=== PATIENT | female | born 1995 | race Caucasian/White ===

== ENCOUNTER 2021-07-29 11:48 | Emergency (ER) | payer OTHER ==
[~2021-07-29 11:48] MED LIST: KEFLEX250 MG PO; NORCO 5-325 TA1 EACH PO; PEPCID AC20 MG PO
[2021-07-29 14:28] LABS: BASOPHIL 0.7 % (0-2); HGB 12.9 g/dl (12.5-16.0); LYMPHOCYTE 60.5 % (15-48); MCH 29.9 pg (25.0-31.0); MCHC 33.1 g/dL (32.0-36.0); MCV 90.5 fL (78.0-100.0); MONOCYTE 10.9 % (0-12); MPV 10.4 fL (6.0-9.5); NEUTROPHIL 26.9 % (41-80); NRBC 0; PLT 148 K/uL (150-400); RBC 4.31 M/uL (4.20-5.40); RDW 13.5 % (11.5-14.0); WBC 2.9 K/uL (4.0-10.5)
[2021-07-29 14:53] LABS: BUN/CREAT RATIO (CALC) 14.7 RATIO; CREATININE 0.68 mg/dL (0.51-0.95); POTASSIUM 3.9 mmol/L (3.5-5.1)
[2021-07-29] MEDS ORDERED: VENTOLIN HFA IN18 GM INH (16:12)
== END 2021-07-29 16:41 | disposition home or self-care (01) ==
LOC: FER 11:48
PROVIDERS: Nurse Practitioner Family
DX: U07.1 COVID-19 (principal)
CPT/HCPCS: 36415; 71045; 80048; 85025; 94010; J1100; J1885; J2405; J7030